=== PATIENT | female | born 2000 | race Caucasian/White ===

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

== ENCOUNTER 2020-05-11 22:36 | Emergency (ER) | payer BC ==
[2020-05-11 23:24] LABS: Absolute Lymphocytes (CBC) 1.9 K/uL (0.7-4.9); Basophils % 0.8 % (0-1.3); Hematocrit 38.1 % (36.0-45.0); Lymphocytes % 20.9 % (15.3-44.8); MPV 9.3 fL (7.6-11.3); RBC Red Blood Cell Count 4.22 M/uL (3.86-4.86)
[2020-05-11 23:43] LABS: Protime INR 1.14
[2020-05-11 23:52] LABS: ALT/SGPT 21 U/L (12-78); AST/SGOT 18 U/L (15-37); Albumin 4.3 g/dL (3.4-5.0); Alkaline Phosphatase 56 U/L (45-117); BUN Blood Urea Nitrogen 13 mg/dL (7-18); Bicarbonate 24 mmol/L (21-32); Bilirubin Direct 0.1 mg/dL (0-0.2); Bilirubin Total 0.6 mg/dL (0.2-1.0); Glucose Level 84 mg/dL (74-106); Potassium 3.3 mmol/L (3.5-5.1); Protein, Total 8.1 g/dL (6.4-8.2); Sodium Level 143 mmol/L (136-145)
[2020-05-11 23:56] LABS: Barbiturates NEGATIVE (NEGATIVE); Benzodiazepines POSITIVE (NEGATIVE); Cocaine NEGATIVE (NEGATIVE); METHAMPHETAM NEGATIVE (NEGATIVE); Methadone NEGATIVE (NEGATIVE); Opiates NEGATIVE (NEGATIVE); Phencyclidine NEGATIVE (NEGATIVE); THC Cannibis POSITIVE (NEGATIVE)
--- NOTE | 2020-05-12 01:55 | EDPHYS ---
Physician Documentation [facility] Name: Shazia Prakash Age: 19 yrs Sex: Female : 2000 Arrival Date: 05/11/2020 Time: 22:48 Bed 6 Private MD: ED Physician Ilan Verma HPI: 05/11 23:53 This 19 yrs old Female presents to ER via EMS with complaints of Suicidal jmm Ideation. 23:53 The patient presents to the emergency department with depression, a history of a jmm suicide gesture, suicide ideation. Onset: The symptoms/episode began/occurred acutely, today. Associated signs and symptoms: Pertinent negatives: shortness of breath. This is a 19 year old female with a history of asthma that presents to the ED with complaints of depression, anxiety along with suicidal ideations and gesture. Patient states cutting her left wrist after an argument with family members. . 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 - Social history:: Smoking status: unknown Patient uses alcohol, occasionally. street drugs, marijuana. ROS: 23:53 Constitutional: Negative for fever, chills, and weight loss, Cardiovascular: Negative jmm for chest pain, palpitations, and edema, Respiratory: Negative for shortness of breath, cough, wheezing, and pleuritic chest pain. 23:53 Psych: Positive for anxiety, depression, suicide gesture, suicidal ideation. 23:53 All other systems are negative. Exam: 23:53 Head/Face: atraumatic. Eyes: EOMI, no conjunctival erythema appreciated ENT: Moist jmm Mucus Membranes Neck: Trachea midline, Supple Chest/axilla: Normal chest wall appearance and motion. Cardiovascular: Regular rate and rhythm. No edema appreciated Respiratory: Normal respirations, no respiratory distress appreciated Abdomen/GI: Non distended, soft Back: Normal ROM 23:53 Constitutional: The patient appears alert, awake, anxious. 23:53 Skin: superficial lacerations noted to the volar surface of the left wrist. 23:53 Psych: Behavior/mood is anxious, Patient having thoughts of suicide. Vital Signs: 22:50 BP 135 / 101; Pulse 83; Resp 16; Temp 98.3; Pulse Ox 100% ; Weight 47.63 kg; Height 5 rr5 ft. 2 in. (157.48 cm); Pain 0/10; 05/12 00:00 BP 115 / 70; Pulse 80; Resp 17; Pulse Ox 99% ; rr5 01:20 BP 115 / 62; Pulse 75; Resp 16; Pulse Ox 100% ; rr5 05/11 22:50 Body Mass Index 19.20 (47.63 kg, 157.48 cm) rr5 MDM: 05/11 22:57 Patient medically screened. [facility] 05/12 01:53 Data reviewed: vital signs, nurses notes. Counseling: I had a detailed discussion with rupesh the patient and/or guardian regarding: the historical points, exam findings, and any diagnostic results supporting the discharge/admit diagnosis, lab results, the need for outpatient follow up, to return to the emergency department if symptoms worsen or persist or if there are any questions or concerns that arise at home. ED course: Patient currently denies being suicidal. [facility] evaluated the patient and recommended close follow up on Thursday. Patient will be discharged to the supervision of her parents and given strict return precautions. . 05/11 22:57 Order name: Acetaminophen; Complete Time: 00:04 [facility] 05/11 22:57 Order name: Basic Metabolic Panel; Complete Time: 00:04 [facility] 05/11 22:57 Order name: CBC with Diff; Complete Time: 00:04 [facility] 05/11 22:57 Order name: ETOH Level; Complete Time: 00:04 [facility] 05/11 22:57 Order name: Hepatic Function; Complete Time: 00:04 [facility] 05/11 22:57 Order name: PT-INR; Complete Time: 00:04 [facility] 05/11 22:57 Order name: Ptt, Activated; Complete Time: 00:04 [facility] 05/11 22:57 Order name: Salicylate; Complete Time: 00:04 [facility] 05/11 22:57 Order name: Urine Drug Screen; Complete Time: 00:04 [facility] 05/11 22:57 Order name: EKG; Complete Time: 22:58 [facility] 05/11 22:57 Order name: EKG - Nurse/Tech; Complete Time: 23:35 [facility] 05/11 22:57 Order name: IV Saline Lock; Complete Time: 23:17 [facility] 05/12 01:50 Order name: Urine Dipstick--Ancillary (enter results) [facility] 05/12 01:50 Order name: Urine --Ancillary (enter results) [facility] 05/11 22:57 Order name: Labs collected and sent; Complete Time: 23:35 [facility] 05/11 22:57 Order name: Urine Dipstick-Ancillary (obtain specimen); Complete Time: 23:35 [facility] 05/11 23:35 Order name: Urine Test (obtain specimen); Complete Time: 23:35 rr5 Administered Medications: No medications were administered Disposition: 06:50 Co-signature as Attending Physician, Ilan Verma MD. [email or web address] Disposition: 05/12/20 01:54 Discharged to Home. Impression: Anxiety disorder, unspecified. - Condition is Stable. - Discharge Instructions: Panic Attacks, Social Anxiety Disorder. - Medication Reconciliation Form, Thank You Letter, Antibiotic Education, Prescription Opioid Use form. - Follow up: Private Physician; When: 2 - 3 days; Reason: Recheck today's complaints, Continuance of care, Re-evaluation by your physician. Signatures: Dispatcher [employer] EDMS Car Mcnally PA PA Fabián Hendrix, RN RN rr5 Ilan Verma MD MD [email or web address] Corrections: (The following items were deleted from the chart) 02:09 01:54 05/12/2020 01:54 Discharged to Home. Impression: Anxiety disorder, unspecified. rr5 Condition is Stable. Forms are Medication Reconciliation Form, Thank You Letter, Antibiotic Education, Prescription Opioid Use. Follow up: Private Physician; When: 2 - 3 days; Reason: Recheck today's complaints, Continuance of care, Re-evaluation by your physician. [facility]
--- NOTE | 2020-05-12 01:55 | ER ---
Nurse's Notes [facility] Name: Shazia Prakash Age: 19 yrs Sex: Female : 2000 Arrival Date: 05/11/2020 Time: 22:48 Bed 6 Private MD: Diagnosis: Anxiety disorder, unspecified Presentation: 05/11 22:50 Chief complaint: EMS states: arrived on the scene patient is hyperventilating around rr5 60-70's respiration. cannot control her respiration versed 2 mg/IV given patient cut her left wrist. 22:50 Coronavirus screen: Client denies travel out of the [place] in the last 14 days. At this rr5 time, the client does not indicate any symptoms associated with coronavirus-19. Ebola Screen: Patient negative for fever greater than or equal to 101.5 degrees Fahrenheit, and additional compatible Ebola Virus Disease symptoms Patient denies exposure to infectious person. Patient denies travel to an Ebola-affected area in the 21 days before illness onset. Initial Sepsis Screen: Does the patient meet any 2 criteria? No. Patient's initial sepsis screen is negative. Does the patient have a suspected source of infection? No. Patient's initial sepsis screen is negative. Risk Assessment: Do you want to hurt yourself or someone else? Patient reports desire/thoughts of hurting themselves or someone else. Provider notified. Onset of symptoms was May 11, 2020. 22:50 Method Of Arrival: EMS: [facility] rr5 22:50 Acuity: BOOM 2 rr5 22:50 Note patient verbalized I have suicidal thoughts but this is my first time cutting my rr5 wrist. 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 - Social history:: Smoking status: unknown Patient uses alcohol, occasionally. street drugs, marijuana. Screenin:00 Fall Risk IV access (20 points). rr5 23:17 Abuse screen: Denies threats or abuse. Denies injuries from another. Nutritional rr5 screening: No deficits noted. Tuberculosis screening: No symptoms or risk factors identified. Assessment: 23:00 General: Appears in no apparent distress. comfortable, Behavior is calm, cooperative, rr5 appropriate for age. 23:00 Pain: Denies pain. Neuro: Level of Consciousness is awake, alert, obeys commands, rr5 Oriented to person, place, time, situation. Cardiovascular: Capillary refill < 3 seconds Patient's skin is warm and dry. Respiratory: Airway is patent Respiratory effort is even, unlabored, Respiratory pattern is regular, symmetrical. GI: No signs and/or symptoms were reported involving the gastrointestinal system. : No signs and/or symptoms were reported regarding the genitourinary system. EENT: No signs and/or symptoms were reported regarding the EENT system. Derm: Skin is intact, is healthy with good turgor, Skin temperature is warm Wound noted palmar aspect of left wrist Wound is multiple abrasion wound. Musculoskeletal: Circulation, motion, and sensation intact. Capillary refill < 3 seconds. 05/12 00:05 Reassessment: jewelry given by the patient to her mother. rr5 00:15 Reassessment: Patient appears in no apparent distress at this time. Patient is alert, rr5 oriented x 3, equal unlabored respirations, skin warm/dry/pink. 01:09 Reassessment: Patient appears in no apparent distress at this time. Patient is alert, rr5 oriented x 3, equal unlabored respirations, skin warm/dry/pink. [facility] assessing the patient. 02:07 Reassessment: Patient appears in no apparent distress at this time. Patient is alert, rr5 oriented x 3, equal unlabored respirations, skin warm/dry/pink. reassess by ED provider explained the plan to patient and parents at the bedside they agreed for the outpatient follow up. discharge instruction given and explained without complaints made. Psych: 05/11 23:00 Suicide Risk Assessment: Sad Person Scale: Sex of patient: Female: Score 0 points. Age rr5 of patient: Score 1 point if patient 15-34. Depression: Score 1 point if signs of depression are present. Previous Attempt: Score 0 point if patient has not previously attempted suicide. Substance Abuse: Score 1 point if patient abuses alcohol or drugs. Rational Thinking: Score 0 point if patient has rational thinking. Social Support: Score 0 if social support is present/available. Organized Plan: Score 1 point if patient had a plan in place. Relationship: Score 1 point if patient is , , , or for a single male Chronic Sickness: Score 0 point if patient does not have a chronic illness, debilitating, or severe disorder. TOTAL POINTS: If total points are 5-6, proposed clinical action is to strongly consider hospitalization, depending upon confidence in the follow-up arrangement. Implement suicide precautions. Safety Checks: Personal items have been removed. Door is open. No visitors are present at this time. 23:00 Subjective: Patient's mood is sad. Objective: Patient is cooperative, Speech is normal, rr5 Affect is appropriate. Interventions: Removed personal items and placed in bag. Patient placed in hospital gown. Searched person for dangerous items. Urine collected and sent for urine drug test. Belonging list filled out. Patient uses marijuana weekly. Commitment: Patient will be a voluntary commitment. Vital Signs: 22:50 BP 135 / 101; Pulse 83; Resp 16; Temp 98.3; Pulse Ox 100% ; Weight 47.63 kg; Height 5 rr5 ft. 2 in. (157.48 cm); Pain 0/10; 05/12 00:00 BP 115 / 70; Pulse 80; Resp 17; Pulse Ox 99% ; rr5 01:20 BP 115 / 62; Pulse 75; Resp 16; Pulse Ox 100% ; rr5 05/11 22:50 Body Mass Index 19.20 (47.63 kg, 157.48 cm) rr5 ED Course: 05/11 22:48 Patient arrived in ED. bb 22:51 Fabián Mora RN is Primary Nurse. rr5 22:53 Car Mcnally PA is PHCP. joslyn 22:53 Ilan Verma MD is Attending Physician. jmm 22:54 Triage completed. rr5 22:56 Arm band placed on. rr5 23:00 Maintain EMS IV. Dressing intact. Good blood return noted. Site clean \T\ dry. Gauge \T\ rr 5 site: G20 left ac. 23:16 Inserted saline lock: 20 gauge in right forearm, using aseptic technique. Blood rr5 collected. IV discontinued, intact, bleeding controlled, No redness/swelling at site. Pressure dressing applied, left AC line per patients request. 23:17 Patient has correct armband on for positive identification. Placed in gown. Bed in low rr5 position. Call light in reach. Side rails up X2. Pulse ox on. NIBP on. 05/12 02:08 No provider procedures requiring assistance completed. rr5 Administered Medications: No medications were administered Outcome: 01:54 Discharge ordered by . joslyn 02:08 Discharged to home ambulatory, with family. rr5 02:08 Condition: stable 02:08 Discharge instructions given to patient, family, Instructed on discharge instructions, follow up and referral plans. Demonstrated understanding of instructions, follow-up care. 02:09 Patient left the ED. rr5 Signatures: Car Mcnally PA PA jmm Ballard, Brenda, RN RN Fabián Rousseau, RN RN rr5
[2020-05-12 02:07] LABS: Urine Blood NEGATIVE (NEG); Urine Glucose NEGATIVE (NEG); Urine Protein 1+ (NEG); Urine Specific Gravity >1.030 (1.005-1.030); Urine pH 6.5 (5.0-7.0)
[2020-05-12 02:27] VITALS: TEMP 98.3
[2020-05-12 02:30] VITALS: BP 115/62; O2SAT 100
--- NOTE | 2020-05-12 12:25 | EKG ---
Test Date: 2020-05-11 Test Time: 23:18:13 [facility] Technician: KYE MEASUREMENT RESULTS: Intervals: Rate: 79 LA: 150 QRSD: 78 QT: 360 QTc: 412 [place]: P: 40 LA: 150 QRS: 57 T: 51 INTERPRETIVE STATEMENTS: Normal sinus rhythm with sinus arrhythmia Normal ECG Compared to ECG 07/01/2019 23:20:45 No significant changes Electronically Signed On 05-12-20 12:24:12 CDT by Gareth Walker
== END 2020-05-12 02:09 | disposition home or self-care (01) ==
LOC: ER 22:36 → 3RD-ICU 05-12 01:53 → UNDOADMIN 05-12 01:53 → ER 05-12 02:09
DX: F41.9 Anxiety disorder, unspecified (principal); J45.909 Unspecified asthma, uncomplicated
CPT/HCPCS: 36415; 80048; 80076; 80307; 80320; 80329; 81003; 81025; 85025; 85610; 85730; 93005; 99285

== ENCOUNTER 2021-09-20 19:13 | Emergency (ER) | payer BC ==
--- OUTSIDE RECORDS SUMMARY | 2021-09-20 19:17 | XMS REPORT | Continuity of Care Document ---
:2000 Author Organization [facility] t Address [address] [place] [address] [address] [place] [address] Care Team Providers Name Role Phone Sree FENG Primary Care Physician Unavailable HUSSAIN Attending Clinician Unavailable CARLENE MALDONADO Attending Clinician Unavailable Carlene Paul Attending Clinician Fred URIBE Attending Clinician SHAMEKA SANDERS Attending Clinician Unavailable DENNIS Attending Clinician Unavailable Payers Payer Name Policy Type Policy Number Effective Date Expiration Date S pablo [facility] - [id number] 2017 00:00:00 OUT OF STATE Advance Directives Directive Decision Effective Termination Comments Source Date Date Healthcare Agents on N/A Univ ersity FileNameRelationshipHealthcare of [place] Agent Medical RelationshipCommunicationFlower Hospitalther Branch Miguel LocMotherHealth Care [phone] (Mobile) [email or web address] Problems Condition Condition Condition Status Onset Resolution Last Treating Co mments Source Name Details Category Date Date Treatment Clinician Date No known No known Disease Unive rs active active ity of problems problems [facility] History of History of Problem Resolve Univers asthma asthma d ity of [place] Physici ans Generalize Generalize Problem Active U nivers d [place] of abdominal [place] pain pain Physici ans Nausea Nausea Problem Active Univers ity of [place] Physici ans Heartburn Heartburn Problem Active Uni vers [place] of [place] Physici ans Headache Headache Problem Active Unive rs [place] Physici ans Concussion Concussion Problem Active U nivers without without ity of loss of loss of [place] consciousn consciousn Ph ysici ess, ess, ans initial initial encounter encounter Allergies, Adverse Reactions, Alerts Allergy Allergy Status Severity Reaction(s) Onset Inactive Treating Comm ents Source Name Type Date Date Clinician [place] drug Active Univers SUSP allergy ity of [facility] ans NO KNOWN Drug Active Univers ALLERGIE Class ity of S [facility] Social History Social Habit Start Date Stop Date Quantity Comments Source Exposure to Unable to assess Univers ity of SARS-CoV-2 [facility]ly [facility] (event) [place] Alcohol intake 2021-06-05 2021-06-05 Ex-drinker [facility] 00:00:00 00:00:00 (finding) [facility] Tobacco use and 2017-11-30 2017-11-30 Never used Universit y of exposure 00:00:00 00:00:00 [facility] Sex Assigned At [birth year] Universit y of 00:00:00 00:00:00 [facility] Smoking Status Start Date Stop Date Source Never smoker [facility] Physicians Medications Ordered Filled Start Stop Current Ordering Indication Dosage Frequency Signature Comments Components Source Medication Medication Date Date Medication? Clinician (SIG) Name Name ondansetron 2021- No 4mg 4 mg, Univ ers (ZOFRAN-ODT 09-02 Oral, ity of ) 23:45: 22:50 ONCE, 1 [place] disintegrat 00 :00 dose, On Medi james ing tablet [facility] 4 mg 09/02/21 at 1745, Routine ibuprofen 2021- No 600mg 600 mg, Uni vers (IBU) 09-02 Oral, ity of tablet 600 23:45: 22:50 ONCE, 1 [place] as mg 00 :00 dose, On Medical Mon Branch 09/02/21 at 1745, CHRISTOPHER ibuprofen Yes [id number] 600mg Take 1 Univers 600 mg -17 tablet by ity of tablet 00:00: mouth [place] 00 every 6 Medical (six) Branch hours as needed for Pain (scale 4-6). benzonatate Yes [id number] 100mg Take 1 Univers 100 mg 1-17 capsule by ity of capsule 00:00: mouth 3 [place] 00 (three) Medical times Branch daily as needed for Cough. ondansetron Yes [id number] 4mg Take 1 Univers (ZOFRAN 1-17 tablet by ity of ODT) 4 mg 00:00: mouth [place] disintegrat 00 every 8 Medic al ing tablet (eight) Branch hours as needed for Nausea and Vomiting (N/V). methylpredn 2020-08 Yes Inject as Univers isolone 0-20 directed. ity of acetate 15:52: [place] ([facility] L Branch INJECTION) methylpredn 2020-08 Yes Inject as Univers isolone 0-20 directed. ity of acetate 15:52: [place] ([facility] L Branch INJECTION) norgestimat 2020-08 Yes [id number] Take 4 Univers e-ethinyl 0-20 tablets ity of estradioL 00:00: day 1, [place] 0.25-35 00 take 3 Medical mg-mcg per tablets Branch tablet day 2 , take 2 tablets daily until menses stops, then take 1 tablet daily. Skip placebos ondansetron 2020-08 Yes [id number] 4mg Take 1 Univers (ZOFRAN) 4 0-20 tablet by ity of mg tablet 00:00: mouth [place] 00 every 8 Medical (eight) Branch hours as needed for Nausea and Vomiting (N/V). norgestimat 2020-08 Yes [id number] Take 4 Univers e-ethinyl 0-20 tablets ity of estradioL 00:00: day 1, [place] 0.25-35 00 take 3 Medical mg-mcg per tablets Branch tablet day 2 , take 2 tablets daily until menses stops, then take 1 tablet daily. Skip placebos ondansetron 2020-08 Yes [id number] 4mg Take 1 Univers (ZOFRAN) 4 0-20 tablet by ity of mg tablet 00:00: mouth [place] 00 every 8 Medical (eight) Branch hours as needed for Nausea and Vomiting (N/V). mirtazapine Yes TAKE ONE Un maru 30 mg 9-17 (1) ity of tablet 00:00: TABLET(S) [place] 00 BY MOUTH Medical ONCE A DAY Branch BEFORE BEDTIME. mirtazapine Yes TAKE ONE Un maru 30 mg 9-17 (1) ity of tablet 00:00: TABLET(S) [place] 00 BY MOUTH Medical ONCE A DAY Branch BEFORE BEDTIME. NexIUM 40 NexIUM 40 2016-08 Yes BARAA Q0.5D TAKE 1 Univers MG Oral MG Oral 0-17 [facility] CAPSULE ity of Capsule Capsule 00:00: KENYATTA Hilario TWICE [place] Delayed Delayed 00 DAILY. Physici Release Release ans Diclofenac Diclofenac Yes Uni vers Sodium 75 Sodium 75 ity o f MG Oral MG Oral [place] Tablet Tablet Physici Delayed Delayed ans Release Release Immunizations Ordered Immunization Filled Immunization Date Status Commen ts Source Name Name Meningococcal, MCV4, 2017-03-27 Completed Univ ersity of unspecified 00:00:00 [place] Physici ans conjugate formulation(groups A, C, Y and W-135) Gardasil 9 2017-03-27 Completed University of Intramuscular 00:00:00 [place] Physi cians Suspension Gardasil 2015-01-11 Completed University of Intramuscular 00:00:00 [place] Physi cians Suspension Meningococcal, MCV4, 2012-12-21 Completed Univ ersity of unspecified 00:00:00 [place] Physici ans conjugate formulation(groups A, C, Y and W-135) Boostrix 5-2.5-18.5 2012-12-21 Completed Unive rsity of Intramuscular 00:00:00 [place] Physi cians Suspension DTaP, unspecified 2006-04-15 Completed Univers ity of formulation 00:00:00 [place] Physici ans Ipol Injection 2006-04-15 Completed University of Injectable 00:00:00 [place] Physicia ns M-M-R II 2006-04-15 Completed University of Subcutaneous 00:00:00 [place] Physic ians Injectable hepatitis A vaccine, 2006-04-15 Completed Univ ersity of pediatric/adolescent 00[place]00:00 [place] Physicians dosage, 2 dose schedule DTaP, unspecified 2005-07-01 Completed Univers ity of formulation 00:00:00 [place] Physici ans Ipol Injection 2005-07-01 Completed University of Injectable 00:00:00 [place] Physicia ns M-M-R II 2005-07-01 Completed University of Subcutaneous 00:00:00 [place] Physic ians Injectable hepatitis A vaccine, 2005-07-01 Completed Univ ersity of pediatric/adolescent 00:00:[place] Physicians dosage, 2 dose schedule Pneumo (Prevnar 7) 2005-07-01 Completed Univer sity of 00:00:00 [place] Physicia ns DTaP, unspecified 2005-03-14 Completed Univers ity of formulation 00:00:00 [place] Physici ans Ipol Injection 2005-03-14 Completed University of Injectable 00:00:00 [place] Physicia ns M-M-R II 2005-03-14 Completed University of Subcutaneous 00:00:00 [place] Physic ians Injectable hepatitis A vaccine, 2005-03-14 Completed Univ ersity of pediatric/adolescent 00:00:00 [place] Phys[place] dosage, 2 dose schedule Pneumo (Prevnar 7) 2005-03-14 Completed Univer sity of 00:00:00 [place] Physicia ns Varivax 1350 2002-08-26 Completed University o f PFU/0.5ML 00:00:00 [place] Physicia ns Subcutaneous Injectable M-M-R II 2001-08-31 Completed University of Subcutaneous 00:00:00 [place] Physic ians Injectable DTaP, unspecified 2001-08-31 Completed Univers ity of formulation 00:00:00 [place] Physici ans Hib, Haemophilus 2001-08-31 Completed Universi ty of influenzae type b 00:00:00 [place] P hysicians vaccine, PRP-T conjugate Ipol Injection 2001-08-31 Completed University of Injectable 00:00:00 [place] Physicia ns Hepatitis B, 2001-03-01 Completed University o f pediatric/adolescent 00:00:00 [place] Physicians dosage DTaP, unspecified 2001-03-01 Completed Univers ity of formulation 00:00:00 [place] Physici ans Hib, Haemophilus 2001-03-01 Completed Universi ty of influenzae type b 00:00:00 [place] P hysicians vaccine, PRP-T conjugate DTaP, unspecified 2000 Completed Univers ity of formulation 00:00:00 [place] Physici ans Hib, Haemophilus 2000 Completed Universi ty of influenzae type b 00:00:00 [place] P hysicians vaccine, PRP-T conjugate Ipol Injection 2000 Completed University of Injectable 00:00:00 [place] Physicia ns Hepatitis B, 2000 Completed University o f pediatric/adolescent 00:00:[place] dosage DTaP, unspecified 2000 Completed Univers ity of formulation 00:00:00 [place] Physici ans Hib, Haemophilus 2000 Completed Universi ty of influenzae type b 00:00:00 [place] P hysicians vaccine, PRP-T conjugate Ipol Injection 2000 Completed University of Injectable 00:00:00 [place] Physicia ns Hepatitis B, 2000 Completed University o f pediatric/adolescent 00:00:[place] dosage Hepatitis B, 2000 Completed University o f pediatric/adolescent 00:00:00 [place] dosage Vital Signs Vital Name Observation Time Observation Value Comments Source Systolic blood 2021-09-02 22:19:00 120 mm[Hg] Univer sity of pressure [facility] Diastolic blood 2021-09-02 22:19:00 74 mm[Hg] Unive rsity of [facility] Heart rate 2021-09-02 22:19:00 100 /min Universi ty [facility] Body temperature 2021-09-02 22:19:00 37.39 Crystal [facility] [place] [facility] ersFormerly [facility] Respiratory rate 2021-09-02 22:19:00 18 /min [facility] [place] [facility] ersFormerly [facility] Body weight 2021-09-02 22:19:00 48.081 kg Universi ty [facility] Oxygen saturation in 2021-09-02 22:19:00 99 /min University of Arterial blood by [facility] Pulse oximetry Branch Systolic blood 2021-06-28 20:43:00 128 mm[Hg] Univer sity of pressure [facility] Diastolic blood 2021-06-28 20:43:00 76 mm[Hg] Unive rsity of [facility] Heart rate 2021-06-28 20:43:00 90 /min Universi ty [facility] Respiratory rate 2021-06-28 20:43:00 14 /min [facility] [place] [facility] ersFormerly [facility] Body height 2021-06-28 20:43:00 157.5 cm Universi ty [facility] Body weight 2021-06-28 20:43:00 48.49 kg Universi ty [facility] BMI 2021-06-28 20:43:00 19.55 kg/m2 Universi ty [facility] Oxygen saturation in 2021-06-28 20:43:00 100 /min University of Arterial blood by [facility] Pulse oximetry Branch BP Systolic 2018-01-05 13:07:00 119 mm[Hg] [facility] Physician s BP Diastolic 2018-01-05 13:07:00 81 mm[Hg] [facility] Physician s Height 2018-01-05 13:07:00 160.5 cm [facility] Physician s Weight 2018-01-05 13:07:00 51.3 kg [facility] Physician s Body Mass Index 2018-01-05 13:07:00 19.91 kg/m2 [facility] rsity of [facility] Physician s Temperature 2018-01-05 13:07:00 98.9 [degF] [facility] Physician s Heart Rate 2018-01-05 13:07:00 60 /min [facility] Physician s Procedures Procedure Date / Time Performing Clinician Source Performed RAPID STREP SCREEN FOR 2021-09-02 22:50:00 Jaun Maldonado [facility] RAPID INFLUENZA A/B 2021-09-02 22:50:00 Jaun Maldonado [facility] CONSENT/REFUSAL FOR 2021-09-02 22:15:03 Doctor Unassigned, No Un [facility] DIAGNOSIS AND TREATMENT Name Medical Branch [[facility]] CALPROTECTIN, 2018-01-05 00:00:00 [facility] STOOL Physicians [QL] FECAL LEUKOCYTE 2018-01-05 00:00:00 [facility] STAIN Physicians [[facility]] HELICOBACTER 2018-01-05 00:00:00 [facility] PYLORI AG, EIA, STOOL Physicians [QL] OCCULT BLOOD, 2018-01-05 00:00:00 [facility] STOOL, SCREENING Physicians [[facility]] CBC (INCLUDES 2018-01-05 00:00:00 [facility] DIFF/PLT) Physicians [QL] CMP W/EGFR 2018-01-05 00:00:00 [facility] Physicians [QL] C-REACTIVE 2018-01-05 00:00:00 [facility] PROTEIN Physicians [QL] LIPASE 2018-01-05 00:00:00 [place] [facility] Physicians Encounters Start End Encounter Admission Attending Care Care Encounter Source Date/Time Date/Time Type Type Clinicians Facility Department ID 2021-09-18 2021-09-18 Outpatient R HUSSAIN, [facility] [id number] Univers 13:00:00 13:00:00 AGUILAR [id number] ity [facility] 2021-09-18 2021-09-18 Outpatient R HUSSAIN, [facility] [id number] Univers 13:00:00 13:00:00 AGUILAR ity [facility] 2021-09-06 2021-09-06 Outpatient R [facility] [id number] Univers 11:30:00 11:30:00 [id number] ity [facility] 2021-09-06 2021-09-06 Outpatient R [facility] [id number] Univers 11:30:00 11:30:00 ity [facility] 2021-09-02 2021-09-02 Emergency X Jaun MALDONADO [facility] ERT [id number] Univers 16:21:00 18:03:00 ity [facility] 2021-09-02 2021-09-02 Emergency Jaun Maldonado [facility] [id number] Univers 16:21:00 18:03:00 Carleneismael CASTRO [id number] i ty of [place] [id number] [facility] [id number] [facility] 084 Branch 2021-06-28 2021-06-28 [facility] [id number] Univers 14:35:16 15:32:30 Visit Torey MULTISPEC [id number] ity of [facility] [id number] [facility] [id number] [facility] AND [place] 220 Branch DIABETES CLINIC 2019-03-03 2019-03-03 Appointmen SHAMEKA SAINI Orthoped[facility] [id number] Univers 13:15:00 13:15:00 t; SHAMEKA SANDERS - [place] [facility] LEONA SANDERS [place] ANDREW, M.D. Physici M.D. ans 2019-02-15 2019-02-15 Appointmen SHAMEKA SAINI [facility]opedics [id number] Univers 14:00:00 14:00:00 t; [place] FALCON [place] ity of LEONA SANDERS [place] Yanelis DELGADILLO M.D. ans 2018-03-09 2018-03-09 Appointmen [facility] UTP [id number] Univers 13:30:00 13:30:00 t; CANDE LOPEZ, it y of [facility]AL[facility] Rosetta Juan ans M.D. 2018-02-16 2018-02-16 Appointmen [facility] UTP [id number] Univers 13:30:00 13:30:00 t; CANDE LOPEZ, it y of [facility] [place] Juan ans M.D. 2018-02-02 2018-02-02 Appointmen [facility] UTP UTP [id number] Univers 08:45:00 08:45:00 t; CANDE LOPEZ, it y of Rosetta Leal M.D., ans M.D. 2018-01-05 [facility] UTP Jonel [id number] Univers 13:15:00 13:15:00 t; CANDE LOPEZ [place] it y of [facility] [place] YOU ans M.D. 2017-07-07 2017-07-07 Appointmen [facility] UTP UTP [id number] Univers 13:15:00 13:15:00 t; CANDE LOPEZ, it y of PALLAVIALRA Yanelis [place] Rosetta YOU ans M.D. 2017-06-02 2017-06-02 [facility] UTP UTP [id number] Univers 09:45:00 09:45:00 t; CANDE LOPEZ, it y of CONSTANCEBD-Rosetta Garner M.D., ans M.D. Results Test Description Test Time Test Comments Results Result Comments Source SARS-CoV-2 (COVID-19), RT-PCR/TMA 2021-09-04 13:14:07 Test Item Value Reference Range Interpretation Comme nts SARS-CoV-2 INTERPRETATION POSITIVE SEE NOTE A S ARS-CoV-2 RNA DETECTEDPositive (test code = 35112) results are indicative of the presence of DEEPIKA S-CoV-2 RNA;clinical co rrelation with patient history and other diagnosticinfor mation is necessary to de termine patient infection statu s.Positive results do not rule out bacterial infection or co -infectionwith other viruses. Positive and negative predic tive values oftesting are h ighly dependent on prevalence. SOURCE (test code = 94523) NASOPHARYNGEAL Note: Methodology is [employer] Real-Time RT-PC R. The expected result or ref erence range is NEGATIVE (Not D etected). For more information reg arding COVID-19 testing to incl ude clinicalinforma tion, methodology detail, intende d use, FDA authorization a ndrecommended fact sheets for carole ents or healthcare providers, see NewTest Announcement: S ARS-CoV-2 (COVID-19) by N AAT at URL below (note,fact shee ts are provided by method given in report:https:// [email or web address] [email or web address]/client -communications/ Alternatively, see downloadable PDF fact sheet at:https://www. [employer]/COVID- 19-RT-PCR UNLESS OTHERWISE INDICATED, ALL TESTING PERFORMED ATCLINICAL PATH OLOGY LABORATORIES, [facility]. [address] [place] [address] 4 LABORATORY DIRE CTOR: TIMOTHY ECKERT M.D. CLIA NUMBER [id number] [place] [id number]
[2021-09-20 19:50] LABS: Urine Blood Negative (Negative); Urine Glucose Negative (Negative); Urine Protein Negative (Negative); Urine Specific Gravity 1.025 (1.005-1.030)
[2021-09-20 20:08] LABS: Urine Specific Gravity/Preg 1.025 (1.005-1.030)
[2021-09-20] MEDS ORDERED: NA CHLORIDE 0.9% 1,000 ML ONE (22:07)
[2021-09-20] MEDS ORDERED: ONDANSETRON 4 MG/2 ML VIAL ONE (22:07)
[2021-09-20 22:17] LABS: Absolute Lymphocytes (CBC) 2.8 K/uL (0.7-4.9); Hematocrit 39.2 % (36.0-45.0); Lymphocytes % 30.2 % (15.3-44.8); MPV 8.1 fL (7.6-11.3); RBC Red Blood Cell Count 4.31 M/uL (3.86-4.86)
[2021-09-20 22:23] LABS: Urine Appearance CLEAR (Clear); Urine Bilirubin NEGATIVE (Negative); Urine Blood NEGATIVE (Negative); Urine Color YELLOW (Yellow); Urine Glucose NEGATIVE (Negative); Urine Protein NEGATIVE (Negative); Urine Urobilinogen 0.2 mg/dL (0.2-1.0); Urine pH 6.5 (5.0-7.0)
[2021-09-20 22:39] LABS: Urine Bacteria 20-50 /HPF (<20); Urine Mucus 3+ /HPF (NONE SEEN); Urine RBC <5 /HPF (NONE SEEN)
[2021-09-20 22:41] LABS: BUN Blood Urea Nitrogen 7 mg/dL (7-18); Bicarbonate 25 mmol/L (21-32); Glucose Level 83 mg/dL (74-106); Potassium 3.1 mmol/L (3.5-5.1); Sodium Level 138 mmol/L (136-145)
[2021-09-20] MEDS ORDERED: POTASSIUM 25 MEQ EFFERV TAB ONE (22:52)
[2021-09-20 22:53] LABS: HCG, Quantitative 36773 mIU/mL (1-3)
[2021-09-20] MEDS ORDERED: ACETAMINOPHEN 325 MG TABLET ONE (22:58)
--- NOTE | 2021-09-21 00:44 | ER ---
Nurse's Notes [facility] Name: Shazia Prakash Age: 21 yrs Sex: Female : 2000 Arrival Date: 09/20/2021 Time: 19:17 Bed 14 Private MD: Diagnosis: related conditions, unspecified, first trimester Presentation: 09/20 19:30 Chief complaint: Patient states: I haven't had a period since July, I took a vc1 test and it was negative but I'm still cramping. This past week I've been cramping and spotting. Today I'm cramping really bad, nauseous and I threw up a weird blue color even though I haven't ate or drank anything. I'm just cramping really bad. When I pee it helps relieve some of the pain. Coronavirus screen: Vaccine status:. Coronavirus screen: Vaccine status: Patient reports being unvaccinated. At this time, the client does not indicate any symptoms associated with coronavirus-19. Ebola Screen: No symptoms or risks identified at this time. Initial Sepsis Screen: Does the patient meet any 2 criteria? No. Patient's initial sepsis screen is negative. Does the patient have a suspected source of infection? No. Patient's initial sepsis screen is negative. Risk Assessment: Do you want to hurt yourself or someone else? Patient reports no desire to harm self or others. Onset of symptoms is unknown. 19:30 Method Of Arrival: Ambulatory vc1 19:30 Acuity: BOOM 3 bb Triage Assessment: 19:35 General: Appears in no apparent distress. comfortable, Behavior is calm, cooperative, vc1 appropriate for age. Pain: Complains of pain in left low back, right low back, right lower quadrant and left lower quadrant Pain currently is 0 out of 10 on a pain scale. at worst was 10 out of 10 on a pain scale. GI: Abdomen is flat, non-distended, Abd is soft Abdomen is tender to palpation in right lower quadrant and left lower quadrant. : Reports cramping, in bilateral flank(s) lower quadrant(s) Pain decreases with urination. 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 Flu vaccine is not up to date. - Social history:: Smoking status: Patient denies any tobacco usage or history of. Screenin:36 Abuse screen: Denies threats or abuse. Nutritional screening: No deficits noted. bb Tuberculosis screening: No symptoms or risk factors identified. Fall Risk None identified. Assessment: 21:36 General: Appears in no apparent distress. Behavior is calm, cooperative. Neuro: Level bb of Consciousness is awake, alert, obeys commands, Oriented to person, place, time, situation. Cardiovascular: Capillary refill < 3 seconds Patient's skin is warm and dry. Respiratory: Respiratory effort is even, unlabored, Respiratory pattern is regular. GI: Bowel sounds present X 4 quads. Derm: Skin is pink, warm \T\ dry. Musculoskeletal: Circulation, motion, and sensation intact. 22:15 Reassessment: Patient is alert, oriented x 3, equal unlabored respirations, skin bb warm/dry/pink. pt on phone tearful. IV site intact. 22:52 Reassessment: Patient is alert, oriented x 3, equal unlabored respirations, skin bb warm/dry/pink. pt states she is having mild abdominal pain and would like some tylenol Bi Senait SHARMA notified new orders received pt medicated see OCT. Vital Signs: 19:30 BP 102 / 84; Pulse 83; Resp 14; Temp 99; Pulse Ox 100% ; Weight 52.16 kg; Height 5 ft. vc1 0 in. (152.40 cm); Pain 0/10; 22:14 BP 113 / 77; Pulse 97; Resp 16 S; Pulse Ox 100% ; bb 22:53 BP 113 / 80; Pulse 88; Resp 16 S; Pulse Ox 100% on R/A; Pain 4/10; bb 09/21 00:30 BP 112 / 76; Pulse 86; Resp 15; Pulse Ox 100% ; vc1 09/20 19:30 Body Mass Index 22.46 (52.16 kg, 152.40 cm) vc1 ED Course: 09/20 19:17 Patient arrived in ED. ja2 19:35 Triage completed. vc1 19:38 Arm band placed on right wrist. vc1 21:12 Ilan Verma MD is Attending Physician. [facility] 21:12 Bi Sapp [facility] cp 21:27 Ilan Verma MD is Attending Physician. cp 21:36 Patient has correct armband on for positive identification. Bed in low position. Call bb light in reach. 21:55 Initial lab(s) drawn, by ak, sent to lab. Urine collected: clean catch specimen. bb Inserted saline lock: 20 gauge in right antecubital area, using aseptic technique. Blood collected. 02 00:34 US Transvaginal Ob In Process Unspecified. EDMS 00:55 No provider procedures requiring assistance completed. IV discontinued, intact, vc1 bleeding controlled, No redness/swelling at site. Pressure dressing applied. Administered Medications: 09/20 22:12 Drug: Zofran (Ondansetron) 4 mg Route: IVP; Site: right antecubital; ll3 22:47 Follow up: Response: No adverse reaction 22:12 Drug: NS 0.9% 1000 ml Route: IV; Rate: 1 bolus; Site: right antecubital; ll3 23:30 Follow up: IV Status: Completed infusion; IV Intake: 1000ml vc1 22:54 Drug: Potassium Effervescent Tablet 50 mEq Route: PO; 02 00:30 Follow up: Response: No adverse reaction vc1 0204 22:54 Drug: Tylenol 650 mg Route: PO; 02 00:30 Follow up: Response: No adverse reaction vc1 Intake: 09/20 23:30 IV: 1000ml; Total: 1000ml. vc1 Outcome: 02 00:43 Discharge ordered by . cp 00:56 Discharged to home ambulatory. vc1 00:56 Condition: good 00:56 Discharge instructions given to patient, Instructed on discharge instructions, follow up and referral plans. medication usage, Demonstrated understanding of instructions, follow-up care, medications, Prescriptions given X 3. 00:56 Patient left the ED. vc1 Signatures: Dispatcher [employer] EDDE Elida Johnson RN RN bb Page, Corey, PA PA cp Holmes, Maurice, MD MD 7 Maile Wen Lynsea, RN RN 3 Calcote, Monica, RN RN vc1 Corrections: (The following items were deleted from the chart) 09/20 21:41 19:30 Acuity: BOOM 4 vc1 bb 22:15 22:02 UA MICROSCOPIC+U.LAB.DUC drawn and sent. vc1 EDMS
--- NOTE | 2021-09-21 00:44 | EDPHYS ---
Physician Documentation [facility] Name: Shazia Prakash Age: 21 yrs Sex: Female : 2000 Arrival Date: 09/20/2021 Time: 19:17 Bed 14 Private MD: ED Physician Ilan Verma HPI: 09/20 19:50 This 21 yrs old Female presents to ER via Ambulatory with complaints of Abdominal cp Cramping, Abdominal Pain, Headache, Vomiting. 19:50 The patient presents with missed menstrual cycle. cp 19:50 Associated signs and symptoms: Pertinent positives: cramping, vaginal bleeding, cp Pertinent negatives: diarrhea, fever. Severity of symptoms: in the emergency department the symptoms are unchanged, despite home interventions. The patient is sexually active, does not use protection during intercourse. 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 Flu vaccine is not up to date. - Social history:: Smoking status: Patient denies any tobacco usage or history of. ROS: 20:00 Constitutional: Negative for body aches, chills, fever, poor PO intake. cp 20:00 Eyes: Negative for injury, pain, redness, and discharge. cp 20:00 ENT: Negative for drainage from ear(s), ear pain, sore throat, difficulty swallowing, difficulty handling secretions. 20:00 Cardiovascular: Negative for chest pain. 20:00 Respiratory: Negative for cough, shortness of breath, wheezing. 20:00 Abdomen/GI: Positive for nausea, vomiting, abdominal cramps, Negative for diarrhea, constipation, black/tarry stool, rectal bleeding. 20:00 Back: Negative for pain at rest, pain with movement, radiated pain. 20:00 : Positive for menstrual abnormality, Negative for urinary symptoms. 20:00 Neuro: Positive for headache, Negative for dizziness, weakness. 20:00 All other systems are negative. Exam: 20:03 Constitutional: The patient appears in no acute distress, alert, awake, comfortable, cp non-toxic, well developed, well nourished. 20:03 Head/Face: Normocephalic, atraumatic. cp 20:03 Eyes: Periorbital structures: appear normal, Conjunctiva: normal, no exudate, no injection, Lids and lashes: appear normal, bilaterally. 20:03 ENT: External ear(s): are unremarkable, Nose: is normal, Mouth: Lips: moist, Oral mucosa: moist, Posterior pharynx: Airway: no evidence of obstruction, patent. 20:03 Chest/axilla: Inspection: normal. 20:03 Cardiovascular: Rate: normal, Rhythm: regular. 20:03 Respiratory: the patient does not display signs of respiratory distress, Respirations: normal, no use of accessory muscles, no retractions, labored breathing, is not present, Breath sounds: are clear throughout, no decreased breath sounds, no stridor, no wheezing. 20:03 Abdomen/GI: Inspection: abdomen appears normal, Bowel sounds: active, all quadrants, Palpation: soft, in all quadrants, mild abdominal tenderness, in the suprapubic area, rebound tenderness, is not appreciated, voluntary guarding, is not appreciated, involuntary guarding, is not appreciated. 20:03 Back: CVA tenderness, is absent. 20:03 Neuro: Orientation: to person, place \T\ time. Mentation: is normal, Motor: moves all fours, strength is normal, Sensation: is normal. Vital Signs: 19:30 BP 102 / 84; Pulse 83; Resp 14; Temp 99; Pulse Ox 100% ; Weight 52.16 kg; Height 5 ft. vc1 0 in. (152.40 cm); Pain 0/10; 22:14 BP 113 / 77; Pulse 97; Resp 16 S; Pulse Ox 100% ; bb 22:53 BP 113 / 80; Pulse 88; Resp 16 S; Pulse Ox 100% on R/A; Pain 4/10; bb 09/21 00:30 BP 112 / 76; Pulse 86; Resp 15; Pulse Ox 100% ; vc1 09/20 19:30 Body Mass Index 22.46 (52.16 kg, 152.40 cm) vc1 MDM: 09/20 21:27 Patient medically screened. cp 22:00 Differential diagnosis: ectopic , ovarian cyst, pelvic inflammatory disease, cp urinary tract infection, vaginosis. 09/21 00:42 Data reviewed: vital signs, nurses notes, lab test result(s), radiologic studies, cp ultrasound. 00:42 Counseling: I had a detailed discussion with the patient and/or guardian regarding: the cp historical points, exam findings, and any diagnostic results supporting the discharge/admit diagnosis, lab results, radiology results, the need for outpatient follow up, for definitive care, an OB/Gyne specialist, to return to the emergency department if symptoms worsen or persist or if there are any questions or concerns that arise at home. 00:43 ED course: VSS. US show IUP with gestational age 5-6 weeks as reported by tech. Will cp discharge to home for continued monitoring. 09/20 19:50 Order name: Urine Dipstick-Ancillary; Complete Time: 21:27 EDND 09/20 19:59 Order name: Urine --Ancillary (enter results); Complete Time: 21:27 ds4 09/20 21:37 Order name: Abo/rh Typing; Complete Time: 22:40 09/21 00:39 Interpretation: Reviewed. 09/20 21:37 Order name: Basic Metabolic Panel; Complete Time: 23:17 09/20 22:44 Interpretation: Normal except: K 3.1. 09/20 21:37 Order name: CBC with Diff; Complete Time: 22:30 09/21 00:39 Interpretation: Reviewed. 09/20 21:37 Order name: Quantitative Hcg; Complete Time: 23:17 09/20 23:17 Interpretation: HCGQ 35017; Reviewed. 09/20 22:17 Order name: Urinalysis W/Microscopic; Complete Time: 22:40 [facility] 09/21 00:39 Interpretation: Normal except: UKET 1+; UBACT 20-50; MUCUS 3+. 09/20 22:40 Order name: Urine Culture [facility] 09/20 22:44 Order name: US Transvaginal Ob 09/20 19:44 Order name: Urine Dipstick-Ancillary (obtain specimen); Complete Time: 19:53 vc1 09/20 19:44 Order name: Urine Test (obtain specimen); Complete Time: 19:53 vc1 09/20 21:37 Order name: IV Saline Lock; Complete Time: 22:01 cp 09/20 21:37 Order name: Labs collected and sent; Complete Time: 22:01 cp 09/20 21:37 Order name: NPO; Complete Time: 22:01 cp Administered Medications: 09/20 22:12 Drug: Zofran (Ondansetron) 4 mg Route: IVP; Site: right antecubital; ll3 22:47 Follow up: Response: No adverse reaction 22:12 Drug: NS 0.9% 1000 ml Route: IV; Rate: 1 bolus; Site: right antecubital; ll3 23:30 Follow up: IV Status: Completed infusion; IV Intake: 1000ml vc1 22:54 Drug: Potassium Effervescent Tablet 50 mEq Route: PO; 09/21 00:30 Follow up: Response: No adverse reaction vc1 09/20 22:54 Drug: Tylenol 650 mg Route: PO; 09/21 00:30 Follow up: Response: No adverse reaction vc1 Disposition: 05:00 Co-signature as Attending Physician, Ilan Verma MD. [email or web address] Disposition Summary: 09/21/21 00:43 Discharge Ordered Location: Home cp Problem: new cp Symptoms: have improved cp Condition: Stable cp Diagnosis - related conditions, unspecified, first trimester cp Followup: cp - With: Private Physician - When: 1 week - Reason: Recheck today's complaints Discharge Instructions: - Discharge Summary Sheet cp - Abdominal Pain During cp - Vaginal Bleeding During , First Trimester cp - First Trimester of cp - Care cp Forms: - Medication Reconciliation Form cp - Thank You Letter cp - Antibiotic Education cp - Prescription Opioid Use cp Prescriptions: - [id number] ac-dha - take 1 tablet by ORAL route once daily; 60 tablet; Refills: 0, Product cp Selection Permitted - Macrobid 100 mg Oral Capsule - take 1 capsule by ORAL route every 12 hours for 7 days; 14 capsule; Refills: 0, cp Product Selection Permitted Signatures: Dispatcher [employer] [facility]ILBERTOMS Elida Johnson RN RN Bi Duncan PA PA cp Ilan Verma MD MD [email or web address] Rajiv Valdovinos RN RN ll3 Monica Abraham RN RN vc1 Corrections: (The following items were deleted from the chart) 09/20 22:15 21:38 UA MICROSCOPIC+U.LAB.BRZ ordered. EDMS EDMS 22:17 19:45 URINALYSIS+U.LAB.BRZ ordered. EDMS EDMS 09/21 00:39 09/20 22:40 Normal except: UKET 1+; UBACT 20-50. cp cp
[2021-09-21 01:03] VITALS: TEMP 99; O2SAT 100
[2021-09-21 01:07] VITALS: BP 112/76
--- NOTE | 2021-09-21 18:59 | RAD REPORT ---
EXAM DESCRIPTION: US - Transvaginal OB - 09/21/2021 12:34 am CLINICAL HISTORY: 21 years Female Abd cramping, ;Vaginal bleeding, LMP: 08/04/2021, EGA: 6 w eeks, 6 days, SUSIE: 05/11/2022 TECHNIQUE: Sonographic imaging of the pelvis was performed endovaginally on 09/21/2021 at 12: 09 AM COMPARISON: CT abdomen and pelvis performed on 04/03/2019 FINDINGS: The uterus is normal in size and configuration and measures: 8.2 x 4.9 x 5.4 cm. There is a normal appearing intrauterine gestational sac. The average sac diameter measures 1.1 cm co rresponding to a gestational age of 5 weeks 6 days. There is a yolk sac present which measures appr oximately 0.3 cm in diameter. There is a pole present with a crown rump length of 0.71 cm corre sponding to a gestational age of 6 weeks 5 days. There is a tiny avascular area decreased echogenicit y adjacent to the gestational sac measuring 0.7 x 0.8 centimeters which may represent a tiny subchori onic bleed. There is a isoechoic mass within the body of the uterus likely representing a myometrial fibroid. This measures approximately 3.8 x 2.5 x 3.5 cm. Doppler imaging reveals a heart rate of 122 beats per minute. The right ovary is grossly normal in size, shape and echogenicity and measures: 2.7 x 2.0 x 1.9 cm. There is normal pulsed and color Doppler flow to the right ovary. There are no right adnexal mass lesions.. The left ovary is grossly normal in size, shape and echogenicity and measures: 2.1 x 2.1 x 2.3 cm. There is normal pulsed and color Doppler flow to the left ovary. There are no left adnexal mass lesions.. There is no free fluid in the pelvis. IMPRESSION: 1. Single living intrauterine with an estimated ultrasound age of 6 weeks 5 da ys corresponding to an estimated due date of 05/12/2022 This corresponds to within 1 day of the expect ed clinical gestational age. 2. Suspect subcentimeter subchorionic bleed. 3. Isoechoic myometrial mass likely representing a fibroid with a maximum dimension of 3.8 cm. Electronically signed by: Mishel Miranda DO 09/21/2021 4:41 AM NEUROLOGY PHYSICIAN Due to temporary technical issues with the PACS/Fluency reporting system, reports are being signed by the in house radiologists without review as a courtesy to insure prompt reporting. The interpreting radiologist is fully responsible for the content of the report.
== END 2021-09-21 00:56 | disposition home or self-care (01) ==
LOC: ER 19:13
DX: O26.891 Other specified pregnancy related conditions, first trimester (principal); Z3A.01 Less than 8 weeks gestation of pregnancy
CPT/HCPCS: 96361; 87088; 85025; 81001; 87086; 80048; 36415; 86900; 81025; 86901; 84702; 81003; 76817; 96374; 99284; J7030; J2405